=== PATIENT | female | born 1985 | race Caucasian/White ===

== ENCOUNTER → 2020-06-11 16:41 | Outpatient (BNVA) | payer OTHER, SELFPAY | PROVIDERS: Visit Provider Obstetrics & Gynecology | DX: N92.6 Irregular menstruation, unspecified (principal) | CPT/HCPCS: 83525 ==

== ENCOUNTER → 2022-07-07 14:54 | Outpatient (BNVA) | payer MEDICAID, SELFPAY | PROVIDERS: Visit Provider Family Medicine | DX: O99.891 Other specified diseases and conditions complicating pregnancy (principal); R30.0 Dysuria; O99.280 Endocrine, nutritional and metabolic diseases complicating pregnancy, unspecified trimester; E03.9 Hypothyroidism, unspecified | CPT/HCPCS: 87077; 87086; 87184; 87624 ==

== ENCOUNTER 2022-07-14 15:18 | Outpatient (CLI) | payer MEDICAID, SELFPAY ==
--- NOTE | 2022-07-14 15:45 | US_ITS ---
WS: [id number] EARLY OBSTETRICAL ULTRASOUND (<14 WEEKS). HISTORY: Dating US COMPARISON: None available. Single intrauterine gestational sac is identified. Cardiac activity at 133 BPM. [employer]-rump length nory sures 0.7 cm which corresponds to a gestation of 6w4d. Normal-appearing yolk sac and amnion demonstra aviva. No subchorionic hemorrhage. No free fluid. Neither ovary is well visualized. US/US OB <=14 wk fetus w transvag IMPRESSION: 1. Single intrauterine gestation of 6 weeks 4 days with an EDC of 03/05/2023. 2. Normal heart rate.
== END 2022-07-14 15:19 | disposition home or self-care (01) ==
LOC: RAD 15:20
PROVIDERS: PCP Nurse Practitioner Family; Visit Provider Family Medicine
DX: Z36.89 Encounter for other specified antenatal screening (principal)
CPT/HCPCS: 76801; 76817; 80053; 80307; 81000; 81025; 84144; 84439; 84443; 84481; 84702; 86592; 86762; 86803; 86850; 86900; 87086; 87340; 87491; 87591; 87806

== ENCOUNTER → 2022-08-20 11:49 | Outpatient (BNVA) | payer MEDICAID, SELFPAY | PROVIDERS: PCP Family Medicine; Visit Provider Family Medicine | DX: Z34.00 Encounter for supervision of normal first pregnancy, unspecified trimester (principal); R30.0 Dysuria | CPT/HCPCS: 81000 ==

== ENCOUNTER → 2022-09-01 14:52 | Outpatient (BNVA) | payer MEDICAID, SELFPAY | PROVIDERS: PCP Family Medicine; Visit Provider Family Medicine | DX: Z34.00 Encounter for supervision of normal first pregnancy, unspecified trimester (principal); R30.0 Dysuria; E03.9 Hypothyroidism, unspecified; N39.0 Urinary tract infection, site not specified | CPT/HCPCS: 81000; 84439; 84443; 84481; 87077; 87086; 87184 ==

== ENCOUNTER → 2022-10-01 13:30 | Outpatient (BNVA) | payer MEDICAID, SELFPAY | PROVIDERS: PCP Family Medicine; Visit Provider Family Medicine | DX: R30.0 Dysuria (principal); N39.0 Urinary tract infection, site not specified; Z34.90 Encounter for supervision of normal pregnancy, unspecified, unspecified trimester; Z51.81 Encounter for therapeutic drug level monitoring | CPT/HCPCS: 81000; 81511; 85025; 87077; 87086; 87184 ==

== ENCOUNTER 2022-10-13 12:04 | Outpatient (CLI) | payer MEDICAID, SELFPAY ==
--- NOTE | 2022-10-13 12:15 | US_ITS ---
WS: [id number] ULTRASOUND OB COMPLETE TECHNIQUE: Complete ultrasound. Technically difficult examination due to body habitus. Fetus po sition prone G1, P0 CLINICAL INFORMATION: Anatomy US - 6 weeks from now COMPARISON: None. FINDINGS: Cervix is long and closed measuring 4.4 cm Single interuterine gestation is identified with vertex presentation facedown. Placenta is anterior. Placenta grade 0. Normal amniotic fluid volume. cardiac activity: 153 BPM. AGA: 20w0d JORGE by ultrasound: 03/02/2023 Based on GA: No Available percentile Estimated weight: 335 g; 12 ounces BDP: 4.6 cm = 19w5d HC: 17.6 cm = 20w1d AC: 15.0 cm = 20w2d FEMUR LENGTH: 3.2 cm = 20w0d Anatomic survey: profile not well seen. Outflow tracts not well visualized. Upper lip not visua lized. Anatomic survey is otherwise normal. Normal stomach. Kidneys and bladder are normal. Normal 3 vessel cord. Normal 3 vessel cord insertion. Normal spine. Intracranial contents are normal. Normal posterio r fossa and cisterna magna. IMPRESSION: Technically difficult examination. 1. Single intrauterine with visualized cardiac activity. AGA 20w0d with JORGE 03/02/2023. 2. Placenta is anterior. No evidence of abruption or previa. 3. profile not well seen. Outflow tracts not well visualized. Upper lip not visualized. Recomm end repeat anatomy attempt in a few weeks 4. anatomic survey is otherwise normal. 5. Normal amniotic fluid volume.
== END 2022-10-13 12:05 | disposition home or self-care (01) ==
PROVIDERS: PCP Family Medicine; Visit Provider Family Medicine
DX: Z34.00 Encounter for supervision of normal first pregnancy, unspecified trimester (principal)
CPT/HCPCS: 76805; 81000; 84439; 84443; 84481; 87077; 87086; 87184

== ENCOUNTER → 2022-11-05 11:33 | Outpatient (BNVA) | payer MEDICAID, SELFPAY | PROVIDERS: PCP Family Medicine; Visit Provider Family Medicine | DX: Z34.00 Encounter for supervision of normal first pregnancy, unspecified trimester | CPT/HCPCS: 87077; 87086; 87184 ==

== ENCOUNTER 2022-11-10 14:48 | Outpatient (CLI) | payer MEDICAID, SELFPAY ==
--- NOTE | 2022-11-10 15:00 | US_ITS ---
WS: [id number] ULTRASOUND OB FOCUSED HISTORY: Follow-up anatomy. Reevaluate nose, lips, heart and profile. COMPARISON: 10/13/2022 Single intrauterine gestation is present. Fetus in breech position. Normal amount of amniotic fluid. Cervix is closed at 4.2 cm. heart rate at 131 BPM. Better visualization of four-chamber heart. LVOT and RVOT are visualized. Real-time imaging was obser lizzie for confirmation of normal outflow tracts. No abnormality was identified. profile, nose and lips are negative. IMPRESSION: 1. Follow-up imaging of the heart and outflow tracts is normal. Heart was best seen during real -time evaluation. 2. Negative profile, nose and lips.
== END 2022-11-10 14:49 | disposition home or self-care (01) ==
LOC: RAD 14:49
PROVIDERS: PCP Family Medicine; Visit Provider Family Medicine
DX: Z34.00 Encounter for supervision of normal first pregnancy, unspecified trimester (principal)
CPT/HCPCS: 76815

== ENCOUNTER 2022-11-14 13:45 | Outpatient (CLI) | payer MEDICAID, SELFPAY ==
[2022-11-14 13:52] VITALS: BMI 44.6
[2022-11-14 13:53] VITALS: RESP 16
[2022-11-14] MEDS: cefTRIAXone 1,000 MG in lidocaine 1% 2.1 ML 2.1 MG IM ×2 (14:16→14:17)
[2022-11-14 14:22] VITALS: RESP 16
== END 2022-11-14 14:24 | disposition home or self-care (01) ==
LOC: OPOB 13:46 → OBGYN 13:47
PROVIDERS: PCP Family Medicine; Visit Provider Family Medicine
DX: O26.899 Other specified pregnancy related conditions, unspecified trimester (principal); Z3A.00 Weeks of gestation of pregnancy not specified
CPT/HCPCS: 96372; 99211; J0696

== ENCOUNTER 2022-11-15 13:48 | Outpatient (CLI) | payer MEDICAID, SELFPAY ==
[2022-11-15] MEDS: cefTRIAXone 1,000 MG in lidocaine 1% 2.1 ML 2.1 MG IM ×2 (14:37→14:42)
== END 2022-11-15 14:55 | disposition home or self-care (01) ==
LOC: OPOB 13:49 → OBGYN 13:54
PROVIDERS: PCP Family Medicine; Visit Provider Family Medicine
DX: O26.899 Other specified pregnancy related conditions, unspecified trimester (principal); Z3A.00 Weeks of gestation of pregnancy not specified
CPT/HCPCS: 96372; 99211; J0696

== ENCOUNTER 2022-11-24 14:57 | Outpatient (CLI) | payer MEDICAID, SELFPAY ==
--- NOTE | 2022-11-24 15:00 | US_ITS ---
WS: [id number] ULTRASOUND RENAL TECHNIQUE: Ultrasound examination of both kidneys. CLINICAL INFORMATION: Frequent UTI, currently COMPARISON: None. FINDINGS: RIGHT: Right kidney is normal in size and appearance. Echogenicity: Normal. Cortical thickness: 1.5 cm; Normal. Hydronephrosis: None. Perinephric fluid: None. Right kidney measures: 11.8 cm x 6.0 cm x 5.9 cm. LEFT: Left kidney is normal in size and appearance. Echogenicity: Normal. Cortical thickness: 1.6 cm; Normal. Hydronephrosis: None. Perinephric fluid: None. Left kidney measures: 12.7 cm x 5.2 cm x 5.0 cm. Normal visualized aorta. Bladder volume Prevoid bladder: estimated volume 577.7 cc ml. Postvoid bladder: estimated volume 11.5 ml. IMPRESSION: 1. Normal renal ultrasound. No hydronephrosis. 2. Normal postvoid bladder residual. Normal bladder emptying.
== END 2022-11-24 14:58 | disposition home or self-care (01) ==
PROVIDERS: PCP Family Medicine; Visit Provider Family Medicine
DX: O23.40 Unspecified infection of urinary tract in pregnancy, unspecified trimester (principal); N39.0 Urinary tract infection, site not specified; Z3A.00 Weeks of gestation of pregnancy not specified
CPT/HCPCS: 76770; 76857

== ENCOUNTER → 2022-12-03 09:59 | Outpatient (BNVA) | payer MEDICAID, SELFPAY | PROVIDERS: PCP Family Medicine; Visit Provider Family Medicine | DX: N39.0 Urinary tract infection, site not specified (principal); Z34.00 Encounter for supervision of normal first pregnancy, unspecified trimester; Z23 Encounter for immunization; E03.9 Hypothyroidism, unspecified | CPT/HCPCS: 81000; 82950; 84439; 84443; 84481 ==

== ENCOUNTER → 2023-01-05 16:18 | Outpatient (BNVA) | payer MEDICAID, SELFPAY | PROVIDERS: PCP Family Medicine; Visit Provider Family Medicine | DX: Z34.00 Encounter for supervision of normal first pregnancy, unspecified trimester (principal); E03.9 Hypothyroidism, unspecified; Z51.81 Encounter for therapeutic drug level monitoring; R30.0 Dysuria; N39.0 Urinary tract infection, site not specified | CPT/HCPCS: 87077; 87086; 87184 ==

== ENCOUNTER → 2023-01-20 09:32 | Outpatient (BNVA) | payer MEDICAID, SELFPAY | PROVIDERS: PCP Family Medicine; Visit Provider Family Medicine | DX: Z34.00 Encounter for supervision of normal first pregnancy, unspecified trimester; E03.9 Hypothyroidism, unspecified; Z51.81 Encounter for therapeutic drug level monitoring; R30.0 Dysuria | CPT/HCPCS: 84439; 84443; 85025; 87086 ==

== ENCOUNTER → 2023-02-02 16:58 | Outpatient (BNVA) | payer MEDICAID, SELFPAY | PROVIDERS: PCP Family Medicine; Visit Provider Family Medicine | DX: Z34.00 Encounter for supervision of normal first pregnancy, unspecified trimester (principal); R30.0 Dysuria | CPT/HCPCS: 87086 ==

== ENCOUNTER 2023-02-05 13:35 | Outpatient (CLI) | payer MEDICAID, SELFPAY ==
--- NOTE | 2023-02-05 14:00 | US_ITS ---
WS: [id number] Exam: US OB limited [id number] Date/Time of Exam: 02/05/2023 2:28 PM Reason For Exam: Head position - This week if possible This is a limited study to determine presentation. Intrauterine with single fetus noted. Presentation is vertex. The placenta is anterior. Fet al heart rate was 116 bpm. IMPRESSION: 1. Viable single intrauterine fetus with vertex presentation. Heart rate 116 bpm.
== END 2023-02-05 13:36 | disposition home or self-care (01) ==
LOC: RAD 13:35
PROVIDERS: PCP Family Medicine; Visit Provider Family Medicine
DX: Z34.00 Encounter for supervision of normal first pregnancy, unspecified trimester (principal); O32.8XX0 Maternal care for other malpresentation of fetus, not applicable or unspecified
CPT/HCPCS: 76815; 87086

== ENCOUNTER 2023-02-15 01:51 | Inpatient (IN) | payer MEDICAID, SELFPAY ==
[2023-02-14] VITALS (42 sets, daily range): BP systolic 119–262; BP diastolic 56–156; PULSE 79–126; RESP 16; TEMP 35.4–36.1; BMI 46.3
[2023-02-14] MEDS: ampicillin 2,000 MG in sodium chloride 0.9% (plus) 50 ML 100 MG IV (17:19)
[2023-02-14] MEDS: dextrose 5%-lactated ringers 1,000 ML 125 ML IV (17:20)
[2023-02-14] MEDS: oxytocin 30 UNIT/500 ML BAG IV (18:15)
[2023-02-14 18:29] LABS: Basophils % 0.2 %; Eosinophils % 0.1 %; Hematocrit 36.4 % (36-47); Lymphocytes # 1.6 10^3/uL (0.8-4.8); Lymphocytes % 9.4 %; Mean Corpuscular HGB Conc 31.3 g/dL (30-55); Mean Corpuscular Hemoglobin 28.7 pg (27-33); Mean Corpuscular Volume 91.7 fl (85-98); Mean Platelet Volume 11.1 fL (7.4-10.4); Monocytes # 0.7 10^3/uL (0.2-0.9); Monocytes % 4.1 %; Neutrophils # 14.85 10^3/uL (1.8-7.7); Neutrophils % 85.6 %; Nucleated Red Blood Cells % 0 %; Platelet Count 304 10^3/cmm (157-399); Red Blood Count 3.97 10^6/uL (3.85-5.65); Red Cell Distribution Width 14.6 % (12.1-15.1); White Blood Count 17.35 10^3/uL (3.29-11.43)
[2023-02-14] MEDS: ampicillin 1,000 MG in sodium chloride 0.9% (plus) 50 ML 100 MG IV (20:19)
--- NOTE | 2023-02-14 20:36 | P.ANESUD_ITS ---
Pre-Anesthetic Update Pre-Anesthetic Assessment: Date of Surgery/Procedure: 02/14/23 Preop Crystal gnosis: labor pain Proposed Procedure: epidural Any changes to Pre-Anesthetic Assessment?: No Labs Last 48hrs: Short CBC 02/14/23 Range/Units 18:10 WBC 17.35 H (3.29-11.43) 10^ 3/uL Hgb 11.40 (11.27-16.99) g/ dL Hct 36.4 (36-47) % MCV 91.7 (85-98) fl Plt Count 304 (157-399) 10^3/c mm Neut % (Auto) 85.6 % Neut # (Auto) 14.85 H (1.8-7.7) 10^3/u L Blood Bank 02/14/23 02/14/23 18:10 19:47 Blood Type Cancelled A Positive Rho(D) Type Cancelled Rh positive Antibody Screen Cancelled Negative Vitals: Temperature 95.7 F L 02/14/23 19:26 Pulse Rate 94 02/14/23 20:22 Respiratory Rate 16 02/14/23 16:33 Blood Pressure 132/71 02/14/23 20:22 Exam: Pre-Anes Outpt Exam: alert, oriented x 3, clear to auscultation bilaterally and regular rate & rhythm Cardiac Studies: No Data to Display
[2023-02-14] MEDS: lactated ringers 1,000 ML 999 ML IV (21:05)
[2023-02-14] MEDS: ROPivacaine syringe 100 MG/50 ML SYRINGE 13 MG EPIDURAL (21:06)
--- NOTE | 2023-02-14 21:11 | P.ANES_ITS ---
Anesthesia Procedures Procedure/Date: 02/14/23 epidural Procedure Narrative: epidural complete, bolus given, epidural pump initiated with [employer] education given, vitals taken during procedure and satisfactory throughout, patient admits to decrease pain, report of procedure to OB RN Epidural: Time Out Performed: Yes Consents Signed: Procedure Consent Consent: requested by attending/covering physician, from patient, risks and benefits reviewed and patient agrees to proceed Lumbar Level: L3-L4 Ep idural position: sitting Epidural procedure: sterile prep of area, 1% lidocaine to numb the area (3 mL), 18 g needle, negative for paresthesia passed, neg for paresthesia, test dose given, 1.5% xylocaine 1:200k epi (5 mL), 0.2% Ropivacaine bolus ml (5 mL), placed PCEA, no systemic response, sterile dressing applied, L.U.D. no apparent complications and 0.2% Ropiavacaine @ mls/hr (13 mL/hr)
--- NOTE | 2023-02-14 21:24 | P.HP_ITS ---
Providers/Chief Complaint 2 Primary Care Provider: Trev Noe MD Chief Complaint: possible SROM History of Present Illness Nishi Membreno is a 37 year old @ 37.4 wks by LMP c/with 6 wk US. Preg c/b morbid obesity, hypothyroidism, UTI in 1st and 2nd TM s/p rocephin x 1 wk, GBS bacteruria. The patient was doing well overall, when she began to have contractions on the morning of 02/14/2023. She then noted a gush of fluid around 12:30 PM on 02/14/2023. Fluid continued to come out and she presented to labor and delivery triage for further evaluation. Upon arrival she was noted to be grossly ruptured. She was kala irregularly. The patient denies any chest pains, shortness of breath, nausea, vomiting, cough, dysuria, fever. Medications/Allergies Home Medications Medication Instructions Recorded Confirmed Last Taken Type prenat.vits,rebecca,rjs-delm-tgoui 1 tab PO DAILY 06/11/20 02/14/23 02/13/23 08:00 History liothyronine 5 mcg tablet 5 mcg PO BID 07/07/22 02/14/23 02/13/23 08:00 History levothyroxine 112 mcg tablet 112 mcg PO DAILY #30 tabs 02/09/23 02/14/23 02/13/23 08:00 Rx Allergies Allergy/AdvReac Type Severity Reaction Status Date / Time No Known Allergies Allergy Verified 06/11/20 13:48 PFSH Acute 2 PFSH: Medical History (Updated 02/14/23 @ 21:27 by Trev Noe MD) Hypothyroidism Surgical History No pertinent past surgical history Family History Grandmother Heart disease Maternal Grandmother Diabetes Maternal Family/Other Diabetes Maternal Uncle Heart disease Maternal Aunt and Uncle Mother Diabetes Has been resolved now Hypothyroidism Heart disease Sister Hypothyroidism Grandfather Diabetes Heart disease Maternal Denies family history of Ovarian cancer Ovarian cyst Clotting disorder Hyperlipidemia Chronic kidney disease (CKD) Breast cancer Anesthesia complication Bleeding disorder Cancer Hypertension Stroke Social History Smoking and tobacco/nicotine status: never used tobacco/nicotine Alcohol intake: never Substance/Drug Use: never Marital status: Marital status details: [employer] is Current occupation: Works at [employer] Female Reproductive History: : 1 Vitals/I&O/Wt Last Vital Signs Temp 95.7 F L 02/14/23 19:26 Pulse 105 H 02/14/23 21:20 Resp 16 02/14/23 16:33 BP 130/73 02/14/23 21:20 02/14/23 02/14/23 02/14/23 06:59 14:59 22:59 Intake Total 54.25 / 54.25 Balance 54.25 / 54.25 Weight last 48 hrs Weight 305 lb Physical Exam 2 Narrative: General: Alert and oriented x3 Eyes: Pupils equal round and reactive to light and accommodation Mouth: Mucous membranes moist, pharynx non-erythematous Cardiac: Regular rate and rhythm without murmurs Lungs: Clear to auscultation bilaterally without wheezes, crackles or rhonchi Abdomen: Soft, non-tender, fundus large for gestational age. Extremities: Trace edema in the bilateral lower extremities Data 02/14/23 18:10 A&P Assessment and plan (1) Supervision of normal intrauterine in primigravida: The patient is doing well overall. She was 2 cm upon admission. heart tones have been in the mid 140s with moderate variability and good accelerations with a category 1 tracing. She just received her laboring epidural and has started to have some late decelerations. We had started her on IV Pitocin. For now the Pitocin has been cut in half and we will further adjust if needed. The patient is receiving ampicillin for GBS prophylaxis. We will proceed with routine care otherwise. Qualifiers: Trimester: third trimester Qualified Code(s): Z34.03 - Encounter for supervision of normal first , third trimester (2) Hypothyroidism: (3) Large for gestational age fetus: (4) Morbid obesity with BMI of 45.0-49.9, adult: Attestations 2 Medical Necessity Statement*: The patient will be here for greater than 2 midnights due to routine intrapartum and management of labor and delivery. Coding Level of Care Code Acute Code for Chg Fwd Diagnoses Encounter for supervision of normal first in third trimester Z34.03 Trimester: third trimester Hypothyroidism E03.9 Large for gestational age fetus Morbid obesity with BMI of 45.0-49.9, adult E66.01; Z68.42
[2023-02-15] VITALS (24 sets, daily range): BP systolic 98–153; BP diastolic 48–86; PULSE 77–108; RESP 16–18; TEMP 36.3–36.9; O2SAT 99–100
[2023-02-15] MEDS: ampicillin 1,000 MG in sodium chloride 0.9% (plus) 50 ML 100 MG IV (00:12)
[2023-02-15] MEDS: ROPivacaine syringe 100 MG/50 ML SYRINGE 13 MG EPIDURAL (00:18)
--- NOTE | 2023-02-15 02:15 | P.MISC_ITS ---
Miscellaneous Note Note: The patient began pushing at approximately 11:15 PM on 02/14/2023. She pushed well, however the head did not descend quickly. The head got to a +1 station and after 1 hour and 45 minutes of pushing, a vacuum was placed due to maternal exhaustion. After multiple pushes, there were 2 pop offs. The head did seem to descend to the +2 position with this. The patient continued to push for approximately 45 minutes but the infant's head did not descend significantly more. There is a large amount of caput and the head would retreat after contractions. For this reason it was felt best to proceed with a primary low section due to concern for cephalopelvic disproportion versus OP po sitioning. The patient is in agreement with the current plan of care.
[2023-02-15] MEDS: famotidine 20 mg/2 mL INJ IVP (02:37)
[2023-02-15] MEDS: metoclopramide 5 mg/mL SDV 2 mL 10 MG IVP (02:37)
[2023-02-15] MEDS: ceFAZolin 2,000 MG in sodium chloride 0.9% (plus) 50 ML 100 MG IV (02:37)
[2023-02-15] MEDS: citric acid-sodium citrate 30 mL UDC PO (02:38)
--- NOTE | 2023-02-15 04:24 | P.PCN_ITS ---
PACU note Narrative: VSS, Good respiratory effort, report to [employer] Exam: awake
--- NOTE | 2023-02-15 04:24 | PM.PACU ---
PACU note Narrative: VSS, Good respiratory effort, report to [employer] Exam: awake
--- NOTE | 2023-02-15 04:29 | P.OP_ITS ---
Operative Report Date of procedure: February 15, 2023 Pre-op diagnosis: 1. Intrauterine at 37.5 weeks gestation 2. Morbid obesity 3. Hypothyroidism 4. UTI in first and second trimester status post IM treatment x 1 week 5. GBS bacteriuria status post multiple doses of ampicillin 6. Arrest of descent with concern for cephalopelvic disproportion Post-op diagnosis: 1. Intrauterine status post primary low-transverse section at 37.5 weeks gestation 2. Morbid obesity 3. Hypothyroidism 4. UTI in first and second trimester status post IM treatment x 1 week 5. GBS bacteriuria status post multiple doses of ampicillin 6. Arrest of descent with concern for cephalopelvic disproportion 7. Delivery of healthy male weighing 8 pounds 2 ounces with Apgars of 9 and 10 Procedure done: Primary low-transverse section Specimens removed/disposition: Placenta discarded Pathology: None Surgeon: Trev Noe MD Estimated blood loss (mL): 700 Findings: 1. Healthy infant male weighing 8 pounds 2 ounces with Apgars of 9 and 10. noted to be in the OA position with clear cephalopelvic disproportion. 2. Intact placenta with central umbilical cord insertion site. Brief History: Nishi Membreno is a 37 year old G1 now P1 status post primary low-transverse section @ 37.5 wks by LMP c/with 6 wk US. Preg c/b morbid obesity, hypothyroidism, UTI in 1st and 2nd TM s/p rocephin x 1 wk, GBS bacteruria. The patient was doing well overall, when she began to have contractions on the morning of 02/14/2023. She then noted a gush of fluid around 12:30 PM on 02/14/2023. Fluid continued to come out and she presented to labor and delivery triage for further evaluation. Upon arrival she was noted to be grossly ruptured. She was kala irregularly. The patient was started on IV Pitocin to augment labor. The patient began to have regular contractions and received a laboring epidural. She made quick change and was complete by 2309 on 02/14/2023. The patient began pushing at 2318 on 02/14/2023. The patient pushed well and the infant's head decided to the +1 station by approximately 1 AM. The patient was starting to wear out, so a vacuum was placed to assist with delivery. After 2 pop-off's, the vacuum was set aside and the patient pushed until approximately 2:00 AM. Initially was felt that she was making progress, however the head would not progressed past the pubic bone and there were signs of turtling. Because of this, it was felt best to proceed with a primary low-transverse section due to concern for cephalopelvic disproportion versus malposition. Procedure: After informed consent was obtained, the patient was taken to the operating room and the patient was prepped and draped in a normal sterile fashion in the dorsal supine position.? The patient's epidural was bolused, however she did not achieve adequate anesthesia. For this reason general anesthesia was carried out.? At 2:57 AM on 02/15/2023 a Pfannenstiel skin incision was made and carried through to the underlying layer of fascia using a scalpel.? The fascial incision was then extended laterally using curved Mayos.? The fascia was then grasped with Janna clamps and the underlying rectus muscles were dissected off taking care to avoid injury to the underlying tissues.? The peritoneum was entered bluntly with one digit.? It was then bluntly.? The bladder blade was placed and the vesicouterine peritoneum was well below the lower uterine segment of the uterus.? The uterine incision was made in the lower uterine segment in a transverse fashion with the scalpel at 3:00 AM.? The amniotic membrane was entered bluntly and a small amount of clear fluid was noted.? Uterine pressure was placed and the infant's head delivered without complication at 3:01 AM on 02/15/2023.? There was no nuchal cord.? The mouth and nose were suctioned.? The rest of the delivered without difficulty.? The infant took a breath immediately upon delivery.? The cord was clamped and cut and the infant was handed to the awaiting pediatric nurses.? The placenta was then manually expressed.? The uterus was exteriorized from the abdomen. Initially there was heavy bleeding.? A wet lap was used to clear the uterus of clots and debris.? The bladder blade was reinserted and the uterine incision was closed using 0 chromic in a running locking fashion.? The uterus was noted to be boggy initially and IV Pitocin was bolused. After this the uterus began to firm up.? A second layer of the same suture was used in the same manner.? Excellent hemostasis was obtained. Next the posterior cul-de-sac was inspected and was cleared of any blood. The gutters were cleared of any further clots and debris and the uterine incision was again inspected and hemostasis was noted.? The subfascial tissue was in spected for hemostasis and the peritoneum was re-approximated using 3-0 plain in a running fashion.? The abdominal muscles were then reapproximated using 2-0 plain in a running fashion. The fascia was then re-approximated using 0 Vicryl in a running fashion.? The subcutaneous tissue was inspected for hemostasis.? Martina's fascia was then re-approximated using 3-0 plain in a running fashion.? Good hemostasis was noted.? The subcutaneous tissue was then re-approximated using a subcuticular stitch.? The patient tolerated the procedure well and was recovered in stable condition.? Estimated blood loss was 700 mL. Urine in the Braun catheter was clear. The patient was taken to recovery in good condition.
[2023-02-15] MEDS: prenatal vitamin Capsule 1 CAP PO (09:32)
[2023-02-15] MEDS: levothyroxine 112 mcg Tablet PO (09:32)
[2023-02-15] MEDS: docusate sodium 100 mg Capsule PO ×2 (09:32→17:25)
[2023-02-15] MEDS: liothyronine 5 mcg Tablet PO ×2 (09:33→17:25)
[2023-02-15] MEDS: ferrous sulfate EC 325 mg Tablet PO ×2 (09:33→17:25)
[2023-02-15] MEDS: ketorolac 30 mg/mL INJ IVP ×3 (09:33→20:32)
[2023-02-15] MEDS: oxyCODONE-APAP 5-325 mg Tablet PO (10:53)
[2023-02-15] MEDS: dextrose 5%-lactated ringers 1,000 ML 125 ML IV (13:58)
[2023-02-15] MEDS: sodium chloride 0.9% 500 ML 999 ML IV (17:25)
[2023-02-15 17:51] LABS: Hematocrit 30.6 % (36-47); Mean Corpuscular HGB Conc 31.7 g/dL (30-55); Mean Corpuscular Hemoglobin 29.3 pg (27-33); Mean Corpuscular Volume 92.4 fl (85-98); Mean Platelet Volume 11.2 fL (7.4-10.4); Platelet Count 322 10^3/cmm (157-399); Red Blood Count 3.31 10^6/uL (3.85-5.65); Red Cell Distribution Width 14.9 % (12.1-15.1); White Blood Count 19.02 10^3/uL (3.29-11.43)
[2023-02-15] MEDS: clindamycin 900 MG/50 ML PREMIX 100 MG IV (18:20)
[2023-02-15] MEDS: simethicone 80 mg Chew PO (20:32)
[2023-02-16] MEDS: clindamycin 900 MG/50 ML PREMIX 100 MG IV ×2 (03:07→09:40)
[2023-02-16 03:08] VITALS: RESP 18
[2023-02-16] MEDS: oxyCODONE-APAP 5-325 mg Tablet PO (03:08)
[2023-02-16] MEDS: simethicone 80 mg Chew PO (04:47)
[2023-02-16 05:00] VITALS: BP 111/59; PULSE 83; RESP 18; TEMP 36.6; TEMP 36.7
--- NOTE | 2023-02-16 08:23 | P.PN_ITS ---
Vitals/I&O/Wt Last Vital Signs Temp 98.0 F 02/16/23 05:00 Pulse 83 02/16/23 05:00 Resp 18 02/16/23 05:00 BP 111/59 02/16/23 05:00 Pulse Ox 100 02/15/23 04:50 O2 Del Method Room Air 02/16/23 05:00 02/15/23 02/16/23 02/16/23 22:59 06:59 14:59 Intake Total 50 / 50 50 / 100 Output Total 200 / 600 Balance -150 / -550 50 / -500 Weight last 48 hrs Weight 305 lb Physical Exam 2 Urinary Catheter Management: Braun: Cath Placed During This Visit: yes, but has since been removed by the nurse Reason for Continuing Indwelling Catheter: Decision to DC Catheter Urinary Catheter Date of Insertion: 02/15/23 Urinary Catheter Time of Insertion: 02:25 Date Urinary Catheter Removed: 02/15/23 Time Urinary Catheter Discontinued: 20:15 Data 02/15/23 16:47 Coding Level of Care Code Acute Code for Chg Selin
--- NOTE | 2023-02-16 09:12 | ANE.PACU2 ---
Inpatient post-anesthesia follow up: Airway intact: Yes Vital signs: Temperature 98.0 F Pulse Rate 83 Respiratory Rate 18 Blood Pressure 111/59 Pulse Oximetry 100 Oxygen Delivery Me thod Room Air Oxygen Flow Rate Fraction of Inspir ed Oxygen Hydration adequate: Yes Nausea and vomiting: No Pain level: 1 Mental status: Baseline
[2023-02-16] MEDS: docusate sodium 100 mg Capsule PO ×2 (09:40→17:27)
[2023-02-16] MEDS: levothyroxine 112 mcg Tablet PO (09:40)
[2023-02-16] MEDS: liothyronine 5 mcg Tablet PO ×2 (09:40→17:27)
[2023-02-16] MEDS: ferrous sulfate EC 325 mg Tablet PO ×2 (09:40→17:27)
[2023-02-16] MEDS: prenatal vitamin Capsule 1 CAP PO (09:40)
[2023-02-16 10:00] VITALS: BP 98/50; PULSE 72; RESP 16
[2023-02-16 15:45] VITALS: BP 135/77; PULSE 97; RESP 16; TEMP 36.7
[2023-02-16] MEDS: ibuprofen 800 mg tablet PO (17:27)
[2023-02-16 17:30] VITALS: BP 129/74; PULSE 118; RESP 17; TEMP 37
[2023-02-16 18:14] VITALS: BP 129/74; PULSE 118; RESP 17; TEMP 37
--- NOTE | 2023-02-16 21:38 | P.DS_ITS ---
Discharge Providers Date of Admission: 02/15/23 01:51 Date of Discharge: February 16, 2023 Attending Provider at Admission: Trev Noe MD Attending Provider at Discharge: Trev Noe MD Primary Care Provider: Trev Noe MD Diagnoses at Discharge Discharge Diagnosis (1) Supervision of normal intrauterine in primigravida: Status: Acute Qualifiers: Trimester: third trimester Qualified Code(s): Z34.03 - Encounter for supervision of normal first , third trimester (2) Hypothyroidism: Status: Acute (3) Large for gestational age fetus: Status: Acute (4) Morbid obesity with BMI of 45.0-49.9, adult: Status: Acute Other Information Additional DC diagnoses/information: 1. Intrauterine status post primary low-transverse section at 37.5 weeks gestation 2. Morbid obesity 3. Hypothyroidism 4. UTI in first and second trimester status post IM treatment x 1 week 5. GBS bacteriuria status post multiple doses of ampicillin 6. Arrest of descent due to cephalopelvic disproportion 7. Delivery of healthy infant male weighing 8 pounds 2 ounces with Apgars of 9 and 10 Reason for Visit Reason for Visit: possible SROM Brief History: Nishi Membreno is a 37 year old G1 now P1 status post primary low-transverse section @ 37.5 wks by LMP c/with 6 wk US. Preg c/b morbid obesity, hypothyroidism, UTI in 1st and 2nd TM s/p rocephin x 1 wk, GBS bacteruria. The patient was doing well overall, when she began to have contractions on the morning of 02/14/2023. She then noted a gush of fluid around 12:30 PM on 02/14/2023. Fluid continued to come out and she presented to labor and delivery triage for further evaluation. Upon arrival she was noted to be grossly ruptured. She was kala irregularly. Hospital Course Hospital Course The patient was started on IV Pitocin to augment labor as she had spontaneous rupture membranes. The patient had regular contractions and made normal study change and was complete by 2309 on 02/14/2023. Unfortunately after nearly 3 hours of pushing, the infant's head did not descend and there was concern for cephalopelvic proportion. Due to this a primary low-transverse section was done. During the procedure it was confirmed that the patient had cephal opelvic disproportion as the 's head was significantly larger than the pelvic outlet. The patient has done very well after section. She has been taking Motrin and only needed 2 doses of Percocet at this point. She has been breast-feeding. She has been ambulating, voiding and tolerating food by mouth. She has had some swelling. Overall her bleeding is decreasing well. Routine discharge instructions were discussed and medications were discussed as well. Will plan to follow-up with the patient at 2 weeks . If there are any concerns for infection or complications she is to let us know sooner. All questions were answered. The patient and her are requesting to be discharged home today. She is doing well so I feel comfortable with proceeding with this at this time. Physical Exam Narrative: General: Alert and oriented x3 Cardiac: Regular rate and rhythm without murmurs Lungs: Clear to auscultation bilaterally without wheezes, crackles or rhonchi Abdomen: Soft, mild to moderate tenderness diffusely. Fundus is firm and well below the umbilicus. Incision is clean and dry without signs of infection or dehiscence. Extremities: +2 pitting edema in the bilateral lower extremities Urinary Catheter Management: Braun: Cath Placed During This Visit: yes, but has since been removed by the nurse Reason for Continuing Indwelling Catheter: Decision to DC Catheter Urinary Catheter Date of Insertion: 02/15/23 Urinary Catheter Time of Insertion: 02:25 Date Urinary Catheter Removed: 02/15/23 Time Urinary Catheter Discontinued: 20:15 Discharge Data Studies Completed and Pending Laboratory Results WBC 19.02 10^3/uL (3.29-11.43) H 02/15/23 16:47 RBC 3.31 10^6/uL (3.85-5.65) L 02/15/23 16:47 Hgb 9.70 g/dL (11.27-16.99) L 02/15/23 16:47 Hct 30.6 % (36-47) L 02/15/23 16:47 MCV 92.4 fl (85-98) 02/15/23 16:47 MCH 29.3 pg (27-33) 02/15/23 16:47 MCHC 31.7 g/dL (30-55) 02/15/23 16:47 RDW 14.9 % (12.1-15.1) 02/15/23 16:47 Plt Count 322 10^3/cmm (157-399) 02/15/23 16:47 MPV 11.2 fL (7.4-10.4) H 02/15/23 16:47 Neut % (Auto) 85.6 % 02/14/23 18:10 Lymph % (Auto) 9.4 % 02/14/23 18:10 [place] % (Auto) 4.1 % 02/14/23 18:10 Eos % (Auto) 0.1 % 02/14/23 18:10 Baso % (Auto) 0.2 % 02/14/23 18:10 Neut # (Auto) 14.85 10^3/uL (1.8-7.7) H 02/14/23 18:10 Lymph # (Auto) 1.6 10^3/uL (0.8-4.8) 02/14/23 18:10 [place] # (Auto) 0.7 10^3/uL (0.2-0.9) 02/14/23 18:10 Eos # (Auto) 0.0 10^3/uL (0.0-0.8) 02/14/23 18:10 Baso # (Auto) 0.0 10^3/uL (0.0-0.1) 02/14/23 18:10 Nucleated RBC % (auto) 0 % 02/14/23 18:10 Nucleated RBCs # 0.0 /100WBC 02/14/23 18:10 Blood Type A Positive 02/14/23 19:47 Rho(D) Type Rh positive 02/14/23 19:47 Antibody Screen Negative 02/14/23 19:47 Vitals Last Vital Signs Temp 98.6 F 02/16/23 18:14 Pulse 118 H 02/16/23 18:14 Resp 17 02/16/23 18:14 BP 129/74 02/16/23 18:14 Pulse Ox 100 02/15/23 04:50 O2 Del Method Room Air 02/16/23 05:00 Discharge Plan Discharge Patient Disposition: Home Condition: Good Prescriptions: New ibuprofen 800 mg Tablet 800 mg PO TID Qty: 60 0RF oxycodone-acetaminophen 5-325 mg Tablet 1 tab PO Q6H PRN (Reason: Moderate To Severe Pain) Qty: 14 0RF ferrous sulfate 325 mg (65 mg iron) Tablet,Delayed Release (Dr/Ec) 325 mg PO BIDWM Qty: 30 0RF Continued prenat.vits,rebecca,dre-avry-ijblx Tablet 1 tab PO DAILY liothyronine 5 mcg tablet 5 mcg PO BID levothyroxine 112 mcg tablet 112 mcg PO DAILY Qty: 30 3RF Discharge Orders: Discharge Order (Routine); Ordered 02/16/23 Ordered By: Trev Noe Referrals: Trev Noe MD [Primary Care Provider] - 02/19/23 12:30 pm Discharge Diet: Regular Discharge Activity: Limit activity as instructed Patient Instructions: Bleeding (DC), Preeclampsia and Eclampsia After Delivery (GEN), Hemorrhage (DC), OB WHC, OB Discharge Report, OB Food/Drug Interaction Guide, Opioid Safety, OB Home Care, OB Proud Parent Packet, Depression Discharge Attestations Time Spent in Discharge Care*: greater than 30 min Quality Metrics Clinical Quality Measures [ No reported AMI, CVA or VTE this stay] Coding Level of Care Code Acute Code for Chg Fwd Diagnoses Encounter for supervision of normal first in third trimester Z34.03 Trimester: third trimester Hypothyroidism E03.9 Large for gestational age fetus Morbid obesity with BMI of 45.0-49.9, adult E66.01; Z68.42
== END 2023-02-16 18:14 | disposition home or self-care (01) | DRG 788 ==
LOC: OPOB 01:52 → OBGYN 01:52
PROVIDERS: Admitting Provider Family Medicine; PCP Family Medicine; Visit Provider Family Medicine
PROC: 10D00Z1 Extraction of Products of Conception, Low, Open Approach (ICD-10-PCS; CPT 59514; principal; 2023-02-15 03:00)
DX: O42.02 Full-term premature rupture of membranes, onset of labor within 24 hours of rupture (principal); O33.5XX0 Maternal care for disproportion due to unusually large fetus, not applicable or unspecified; Z3A.37 37 weeks gestation of pregnancy; Z37.0 Single live birth; O99.284 Endocrine, nutritional and metabolic diseases complicating childbirth; E03.9 Hypothyroidism, unspecified; O99.214 Obesity complicating childbirth; E66.01 Morbid (severe) obesity due to excess calories; O99.824 Streptococcus B carrier state complicating childbirth
CPT/HCPCS: 36415; 51702; 59409; 83986; 85025; 85027; 86850; 86900; 96374; 96376; J0290; J0690; J1170; J1885; J2590; J2765; J2795; J3010; J3490; J7030; J7040; J7120; J7121

== ENCOUNTER → 2023-04-08 14:12 | Outpatient (BNVA) | payer MEDICAID, SELFPAY | PROVIDERS: PCP Family Medicine; Visit Provider Family Medicine | DX: E03.9 Hypothyroidism, unspecified; Z39.2 Encounter for routine postpartum follow-up; R53.83 Other fatigue | CPT/HCPCS: 84439; 84443; 84481 ==

== ENCOUNTER → 2023-11-22 16:35 | Outpatient (BNVA) | payer MEDICAID, SELFPAY | PROVIDERS: PCP Family Medicine; Visit Provider Family Medicine | DX: J06.9 Acute upper respiratory infection, unspecified (principal) | CPT/HCPCS: 87426 ==

== ENCOUNTER → 2023-11-25 13:52 | Outpatient (BNVA) | payer MEDICAID, SELFPAY | PROVIDERS: PCP Family Medicine; Visit Provider Family Medicine | DX: E03.9 Hypothyroidism, unspecified (principal) | CPT/HCPCS: 84439; 84443 ==